=== PATIENT | female | born 1960 | race Caucasian/White ===

== ENCOUNTER 2021-04-25 19:59 | Emergency (ER) | payer MEDICARE ==
[~2021-04-25 19:59] MED LIST: ANORO ELLIPTA1 EACH INH; ASPIRIN CHEWABL81 MG PO; ATIVAN0.5 MG PO; B12 IN; COUMADIN4 MG PO; GABAPENTIN600 MG PO; GABAPENTIN800 MG PO; LIPITOR20 MG PO; LOVENOX40 MG/0.4 SC; MUCINEX 600MG600 MG PO; NARCAN4 MG INH; NEURONTIN300 MG PO; NEURONTIN400 MG PO; NORVASC5 MG PO; OXYCODON-ACETA1 EAC1 PO; PERCOCET 7.5/321 TAB PO; PHENERGAN25 M1 PO; PREDNISONE 20MG20 MG PO; PROVENTIL IN; ROBITUSSIN W/COD5 ML PO; VENTOLIN (2.5 MG/3 M INH; VIBRAMYCIN100 MG PO; VIT D PO
[2021-04-25 21:00] LABS: BASOPHIL 0.4 % (0-2); EOSINOPHIL 0.7 % (0-5); HCT 43.9 % (37.0-47.0); HGB 14.4 g/dl (12.5-16.0); LYMPHOCYTE 25.6 % (15-48); MCH 34.2 pg (25.0-31.0); MCHC 32.8 g/dL (32.0-36.0); MCV 104.3 fL (78.0-100.0); MONOCYTE 12.9 % (0-12); MPV 9.7 fL (6.0-9.5); NRBC 0; PLT 238 K/uL (150-400); RBC 4.21 M/uL (4.20-5.40); RDW 12.7 % (11.5-14.0); WBC 10.8 K/uL (4.0-10.5)
[2021-04-25 21:24] LABS: ALBUMIN 3.8 g/dL (3.4-5.0); BILIRUBIN - TOTAL 0.5 mg/dL (0.2-1.0); BUN/CREAT RATIO (CALC) 16.7 RATIO; CREATININE 0.72 mg/dL (0.51-0.95); POTASSIUM 3.8 mmol/L (3.5-5.1); TOTAL PROTEIN 6.8 g/dL (6.4-8.2)
[2021-04-25] MEDS ORDERED: VENTOLIN HFA18 GM INH (22:06)
[2021-04-25] MEDS ORDERED: ZPAK PO (22:06)
[2021-04-25] MEDS ORDERED: MEDROL 4MG DOSEP4 MG PO (22:06)
== END 2021-04-25 22:49 | disposition home or self-care (01) ==
LOC: FER 19:59
PROVIDERS: Emergency Medicine
DX: J44.1 Chronic obstructive pulmonary disease with (acute) exacerbation (principal); F17.200 Nicotine dependence, unspecified, uncomplicated; Z88.0 Allergy status to penicillin; Z20.822 Contact with and (suspected) exposure to COVID-19
CPT/HCPCS: 36415; 71045; 80053; 84484; 85025; 93005; 94640; 94664; U0002

== ENCOUNTER 2021-05-02 08:42 | Emergency (ER) | payer MEDICARE ==
[~2021-05-02 08:42] MED LIST changes: +MEDROL 4MG DOSEP4 MG PO; +VENTOLIN HFA18 GM INH; +ZPAK PO
[2021-05-02 09:31] LABS: BASOPHIL 0.4 % (0-2); HCT 42.8 % (37.0-47.0); HGB 14.1 g/dl (12.5-16.0); LYMPHOCYTE 32.4 % (15-48); MCH 34.1 pg (25.0-31.0); MCHC 32.9 g/dL (32.0-36.0); MCV 103.4 fL (78.0-100.0); MONOCYTE 11.8 % (0-12); MPV 8.9 fL (6.0-9.5); NEUTROPHIL 53.4 % (41-80); NRBC 0; PLT 261 K/uL (150-400); RBC 4.14 M/uL (4.20-5.40); RDW 12.7 % (11.5-14.0)
[2021-05-02 09:41] LABS: INR 3.19 (0.9-1.2); PROTHROMBIN TIME 31.6 SECONDS (11.8-13.4); PTT 42.4 SECONDS (24.4-34.7)
[2021-05-02 09:50] LABS: ALBUMIN 3.4 g/dL (3.4-5.0); BILIRUBIN - TOTAL 0.4 mg/dL (0.2-1.0); BUN/CREAT RATIO (CALC) 16.7 RATIO; CREATININE 0.66 mg/dL (0.51-0.95); GLOBULIN (CALCULATION) 2.9 g/dL; POTASSIUM 3.7 mmol/L (3.5-5.1); TOTAL PROTEIN 6.3 g/dL (6.4-8.2)
[2021-05-02 10:10] LABS: CORONAVIRUS 2019 SARS-COV-2 NEGATIVE (NEGATIVE); INFLUENZA A NAA NEGATIVE (NEGATIVE)
[2021-05-02] MEDS ORDERED: VIBRAMYCIN100 MG PO (10:15)
== END 2021-05-02 11:05 | disposition home or self-care (01) ==
LOC: FER 08:42
PROVIDERS: Internal Medicine
DX: J44.1 Chronic obstructive pulmonary disease with (acute) exacerbation (principal); J06.9 Acute upper respiratory infection, unspecified; R79.1 Abnormal coagulation profile; I10 Essential (primary) hypertension; Z88.0 Allergy status to penicillin; Z20.822 Contact with and (suspected) exposure to COVID-19
CPT/HCPCS: 36415; 71045; 80053; 84145; 84484; 85025; 85610; 85730; 93005; U0002